=== PATIENT | female | born 1995 | race Caucasian/White ===

== ENCOUNTER → 2019-11-09 16:29 | Outpatient (BNVA) | payer BC, SELFPAY | PROVIDERS: Family Provider Nurse Practitioner Family; PCP Nurse Practitioner Family; Visit Provider Nurse Practitioner Family | DX: Z11.59 Encounter for screening for other viral diseases (principal); J06.9 Acute upper respiratory infection, unspecified; R19.7 Diarrhea, unspecified; J02.9 Acute pharyngitis, unspecified | CPT/HCPCS: 80053; 85025; 87070; 87635 ==

== ENCOUNTER → 2019-11-16 11:49 | Outpatient (BNVA) | payer BC, SELFPAY | PROVIDERS: Family Provider Nurse Practitioner Family; PCP Nurse Practitioner Family; Visit Provider Nurse Practitioner Family | DX: R05 Cough (principal); R30.0 Dysuria | CPT/HCPCS: 71046; 81000; 85025 ==

== ENCOUNTER 2020-04-07 21:43 | Emergency (ER) | payer BC, MEDICAID, SELFPAY ==
[2020-04-07 21:54] VITALS: BP 121/74; PULSE 89; RESP 14; TEMP 36.7; O2SAT 97; BMI 27.4
[2020-04-07 22:03] VITALS: BP 101/66; PULSE 88; RESP 16; O2SAT 99
--- NOTE | 2020-04-07 22:09 | USR_ITS ---
PROCEDURE INFORMATION: Exam: US , Limited Exam date and time: 04/07/2020 11:35 PM Age: 24 years old Clinical indication: Lmp or gestational age (in weeks): 16 wks 1 day 16 wks 5 day by u/s; Other: Cramping; ; Prior surgery; Surgery type: C-sec; Patient HX: Current UTI; Additional info: Abdominal pain, cramping TECHNIQUE: Imaging protocol: Real-time ultrasound of the maternal uterus with image documentation. Exam focused on the clinical indication. COMPARISON: No relevant prior studies available. FINDINGS: Single living fetus. Posterior placenta. No visible placental abnormality on the provided images. Amniotic fluid volume within normal limits. Cervical length was estimated with transabdominal scanning, measuring approximately 3.5 cm. No definite cervical canal dilation or fluid on the provided images. Complete measurements were not obtained at this time. BPD: , 3.5 cm. , 16 weeks, 5 days HC: , 13.0 cm. , 16 weeks, 5 days heart activity documented by the technologist, 144 bpm. Evaluation of anatomy still limited by early gestation. Complete/detailed evaluation of anatomy was not performed/possible at this time. Followup/complete evaluation of anatomy recommended, as clinically appropriate. No visible maternal adnexal abnormality. The urinary bladder was not completely evaluated/imaged at this time. US/ OB limited [id number] IMPRESSION: 1. Single living fetus, estimated age: 16 weeks, 5 days. 2. Posterior placenta. No visible placental abnormality on the provided images. 3. Normal amniotic fluid volume. 4. Other details discussed above.
--- NOTE | 2020-04-07 22:27 | W.ED.PREGNAN ---
HPI - General: Chief complaint: Abdominal Pain Stated complaint: BACK PAIN, VOMITING Time Seen by Provider: 04/07/20 22:03 Source: patient and family (mother) Mode of arrival: ambulatory Limitations: no limitations History of Present Illness: HPI Narrative: 24-year-old female patient presents to the emergency department with 24-hour onset of lower abdominal pain. She reports pain radiating to her lower back. She denies fever chills. Reports vomiting that started last night with onset of pain. History of cystitis; denies dysuria or urinary frequency/pain with urination. She reports has not taken anything for pain, reports approximately 16 weeks , unknown last menstrual period. Reports her due date 09/21/2020. 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 She reports taking amoxicillin due to an infection, reports has to take the amoxicillin again prior to delivery. She denies vaginal bleeding. Reports bleeding did occur in first trimester but resolved at 11th week. MD Complaint: abdominal pain Onset (ago): hour(s) (24) Pain Consistency: intermittent Location: pelvis Severity: moderate Quality: Cramping and Dull Radiation: pelvis Relieving factors: none Exacerbating factors: none Vaginal discharge: none Vaginal bleeding: none Patient : Yes Expected Date of Delivery: 09/21/20 OB History - Current : no complications OB History - Previous Pregnancies: no complications Associated symptoms: Reports abdominal pain, nausea and vomiting; Deny dysuria or headache(s) Related Data: : 2 Review of Systems General: Reports: 10 or more systems reviewed and unremarkable except in HPI and below Const: Denies: fever(s), chills or diaphoresis Eyes: Denies: change in vision, blurry vision, eye discomfort or eye redness ENMT: Denies: throat pain, dental pain or disequilibrium Card: Denies: chest pain, palpitations, irregular heart rhythm or swelling of feet/ankles Resp: Denies: dyspnea, productive cough, non-productive cough, wheezing or chest congestion GI: Reports: abdominal pain, nausea and vomiting : Reports: pelvic pain; Denies: flank pain, difficulty voiding, dysuria, urinary frequency, urinary urgency, dribbling, urinary incontinence, hematuria, genital lesions, vaginal dryness, vaginal odor or vaginal bleeding Musc: Reports: back pain; Denies: neck pain, joint pain, joint stiffness, muscle cramps or muscle weakness Skin/Breast: Denies: rash or pruritus Neuro: Denies: headache(s), weakness in extremities or behavioral changes Psych: Denies: anxiety, depression or change in appetite Berry/Lymph: Denies: easy bruising PFSH ED PFSH: Medical History (Updated 04/08/20 @ 00:19 by JESUS Vidales) delivery delivered Depression with anxiety Insomnia Social History Smoking and tobacco status: never smoked Second hand smoke exposure: No Smoking risk assessment/counseling performed?: No Alcohol intake: never Desire information about alcohol rehabilitation?: No Counseling given: No Female Reproductive History: : 2 Physical Exam Const: COMMON NORMALS: no acute distress, average body habitus, patient oriented x3, healthy appearing, alert and well nourished EXAM LIMITATIONS: no altered mental status and no physical limitations GENERAL APPEARANCE: cooperative, well kempt, well developed and well hydrated; not comfortable, not anxious and not ill appearing NUTRITIONAL APPEARANCE: overweight ORIENTATION/CONSCIOUSNESS: Yes awake, Yes oriented to person, Yes oriented to place and Yes oriented to time HENMT: COMMON NORMALS: normocephalic, atraumatic, Normal external nose present and moist oral mucous membranes HEAD & SCALP: normal to inspection, normocephalic and atraumatic FACE & SINUS: normal facial exam, sinuses nontender and face symmetric NOSE: Normal external nose present MOUTH: Normal oral and palatal mucosa present, lip normal and tongue normal THROAT: posterior oropharynx normal Eye: COMMON NORMALS: Equal, round and reactive pupils present and EOMs intact bilaterally GENERAL EYE: appearance normal, both eyes and all related structures PUPIL: Yes Equal, round and reactive pupils present Neck/C-Spine: COMMON NORMALS: full ROM, no lymphadenopathy and supple GENERAL: Yes normal visual inspection and Yes trachea midline CERVICAL SPINE: Yes cervical ROM normal Lymph: LYMPHATIC: no lymphadenopathy noted Chest: COMMONS NORMALS: normal inspection of the chest and normal palpation of entire chest wall Resp: COMMON NORMALS: normal respiratory effort, No retractions, No use of accessory muscles and clear to auscultation bilaterally EFFORT & INSPECTION: Yes able to speak in complete sentences and No uses accessory muscles AUSCULTATION: clear to auscultation bilaterally, no wheezes and lung sounds not diminished Cardio: COMMON NORMALS: regular rate, regular rhythm, S1 normal heart sound present, S2 normal heart sound present and Peripheral pulses 2+ throughout RATE: regular rate RHYTHM: regular rhythm HEART SOUNDS: S1 normal heart sound present and S2 normal heart sound present PERIPHERAL PULSES: Peripheral pulses 2+ throughout GI: COMMON NORMALS: Normal to inspection, nondistended, normoactive bowel sounds present and Soft to palpation INSPECTION: Yes normal to inspection, No Abdominal wall edema, No abdominal distension, No central obesity and Yes gravid abdomen AUSCULTATION: Yes normoactive bowel sounds PALPATION: Yes Soft to palpation, Yes Tenderness to palpation present (GI) (lower pelvis) and Yes Other GI palpation findings present (FHT 155 regular and strong) : COMMON NORMALS: Yes no CVA tenderness BLADDER/KIDNEY EXAM: Yes no CVA tenderness Back/Pelvis: COMMON NORMALS: no CVA tenderness and thoracic and lumbar spine normal to inspection Extremity: COMMON NORMALS: normal to inspection, full ROM and capillary refill normal GENERAL: Yes normal exam except as noted Neuro: COMMON NORMALS: patient oriented x3 and no focal motor deficits SENSORIUM/ORIENTATION: Yes alert, Yes oriented to person, Yes oriented to place and Yes oriented to time SPEECH: speech normal GAIT: Yes Normal gait present MOTOR EXAM: 5/5 motor strength present throughout Psych: COMMON NORMALS: mental status grossly normal, Normal thought process present, cooperative, normal affect, speech normal and activity/motor behavior normal APPEARANCE: Yes well kempt ACTIVITY/MOTOR BEHAVIOR: Yes appropriate eye contact SPEECH: Yes normal speech THOUGHT PROCESS: Normal thought process present MEMORY/COGNITION: Yes memory grossly intact INSIGHT: Good insight present (Psych) JUDGEMENT: Good judgement present (Psych) Skin: COMMON NORMALS: no rashes or lesions noted and turgor normal GENERAL SKIN EXAM: no rashes or lesions noted and turgor normal Course Vital Signs: Vital signs: Vital Signs Temperature 98.1 F 04/07/20 21:54 Pulse Rate 73 04/08/20 00:43 Respiratory Rate 18 04/08/20 00:43 Blood Pressure 110/73 04/08/20 00:43 Pulse Oximetry 97 04/08/20 00:43 MDM - OB/Uterine Contractions MDM Narrative: Medical decision making narrative: 24-year-old female patient presents to the emergency department with 1 to 2-day history of lower pelvic pain that radiates to her back. She has history of urinary cystitis; urinalysis did reveal leukoesterase, bacteria and white blood cells. ultrasound with 16-week 5-day intrauterine without abnormalities, heart rate was strong 140s. Renal ultrasound with suspicious mild right hydronephrosis which could include urinary tract infection/early pyelonephritis or renal calculus. Placed on Omnicef twice daily with referral to Dr. Rendon, urology. Reglan and Tylenol administered here in the ED along with IV fluids, she reports pain resolved and felt much better. Was able to tolerate p.o. fluids here in the ED. Lab Data: Labs: Lab Results 04/07/20 04/07/20 04/07/20 Range/Units 22:15 22:15 22:15 WBC 10.2 H (4.0-10.0) 10^3/ uL RBC 3.67 L (4.1-5.3) 10^6/u L Hgb 11.6 (11.5-15.3) g/dL Hct 35.4 L (37.0-47.0) % MCV 96.5 (81-99) fL MCH 31.6 (28.0-34.0) pg MCHC 32.8 (30.0-36.0) g/dL RDW 13.0 (12.1-15.1) % Plt Count 271 (130-400) 10^3/c mm MPV 10.0 (7.4-10.4) fL Neut % (Auto) 72.4 % Lymph % (Auto) 17.9 % [place] % (Auto) 6.9 % Eos % (Auto) 1.5 % Baso % (Auto) 0.5 % Neut # (Auto) 7.41 (1.8-7.7) 10^3/u L Lymph # (Auto) 1.8 (0.8-4.8) 10^3/u L [place] # (Auto) 0.7 (0.2-0.9) 10^3/u L Eos # (Auto) 0.2 (0.0-0.8) 10^3/u L Baso # (Auto) 0.1 (0.0-0.1) 10^3/u L Nucleated RBC % (a uto) 0 % Nucleated RBCs # 0.0 /100WBC Sodium 135 L (136-145) mmol/L Potassium 3.7 (3.5-5.1) mmol/L Chloride 100 (98-107) mmol/L Carbon Dioxide 25 (22-29) mmol/L Anion Gap 13.7 (5-19) BUN 6 (6-20) mg/dL Creatinine 0.5 (0.5-0.9) mg/dL GFR Calculation 152.9 H (90-130) mL/min Glucose 87 (65-115) mg/dL Calculated Osmolal ity 277 L (285-295) mOsm/k g Calcium 8.9 (8.5-10.5) mg/dL Total Bilirubin 0.3 (0.15-1.2) mg/dL AST 10 (0-32) U/L ALT 6 (0-33) U/L Alkaline Phosphata se 62 (35-105) IU/L Total Protein 6.8 (6.6-8.7) g/dL Albumin 3.9 (3.5-5.2) g/dL Globulin 2.9 (1.3-4.6) g/dL Lipase 44 (13-60) U/L Ser , [place] 21836.00 mIU/mL Urine Color (Yellow) Urine Appearance (CLEAR) Urine pH (5-7) Ur Specific Gravit y (1.005-1.030) Urine Protein (Negative) Urine Glucose (UA) (Normal) Urine Ketones (Negative) Urine Blood (Negative) Urine Nitrate (Negative) Urine Bilirubin (Negative) Urine Urobilinogen (Negative) mg/dL Ur Leukocyte Yaima ase (Negative) Urine RBC (0-2) /hpf Urine WBC (0-5) /hpf Ur Squamous Epith Cells (0-5) /hpf Amorphous Sediment /hpf Urine Bacteria (NONE) /hpf Urine Mucus /hpf 04/07/20 Range/Units 22:15 WBC (4.0-10.0) 10^3/ uL RBC (4.1-5.3) 10^6/u L Hgb (11.5-15.3) g/dL Hct (37.0-47.0) % MCV (81-99) fL MCH (28.0-34.0) pg MCHC (30.0-36.0) g/dL RDW (12.1-15.1) % Plt Count (130-400) 10^3/c mm MPV (7.4-10.4) fL Neut % (Auto) % Lymph % (Auto) % [place] % (Auto) % Eos % (Auto) % Baso % (Auto) % Neut # (Auto) (1.8-7.7) 10^3/u L Lymph # (Auto) (0.8-4.8) 10^3/u L [place] # (Auto) (0.2-0.9) 10^3/u L Eos # (Auto) (0.0-0.8) 10^3/u L Baso # (Auto) (0.0-0.1) 10^3/u L Nucleated RBC % (a uto) % Nucleated RBCs # /100WBC Sodium (136-145) mmol/L Potassium (3.5-5.1) mmol/L Chloride (98-107) mmol/L Carbon Dioxide (22-29) mmol/L Anion Gap (5-19) BUN (6-20) mg/dL Creatinine (0.5-0.9) mg/dL GFR Calculation (90-130) mL/min Glucose (65-115) mg/dL Calculated Osmolal ity (285-295) mOsm/k g Calcium (8.5-10.5) mg/dL Total Bilirubin (0.15-1.2) mg/dL AST (0-32) U/L ALT (0-33) U/L Alkaline Phosphata se (35-105) IU/L Total Protein (6.6-8.7) g/dL Albumin (3.5-5.2) g/dL Globulin (1.3-4.6) g/dL Lipase (13-60) U/L Ser , Matt i-Qnt mIU/mL Urine Color Yellow (Yellow) Urine Appearance Sl cloudy A (CLEAR) Urine pH 7 (5-7) Ur Specific Gravit y 1.010 (1.005-1.030) Urine Protein Neg (Negative) Urine Glucose (UA) Norm (Normal) Urine Ketones Negative (Negative) Urine Blood Neg (Negative) Urine Nitrate Negative (Negative) Urine Bilirubin Neg (Negative) Urine Urobilinogen Norm (Negative) mg/dL Ur Leukocyte Yaima ase Trace H (Negative) Urine RBC 0-4 H (0-2) /hpf Urine WBC 5-10 H (0-5) /hpf Ur Squamous Epith Cells 15-25 H (0-5) /hpf Amorphous Sediment 3+ /hpf Urine Bacteria 1+ H (NONE) /hpf Urine Mucus 1+ /hpf Imaging Data^: US: Radiologist's impression: [address] [place] [address] Ultrasound Report Signed Patient: Sherry Tsang Unit #: [id number] : 1995 Age/Sex: 24 / F ADM Date: 04/07/20 Loc: ER Room/Bed: Attending Dr: Ordering Provider/Ordering MD: Laura Bowden Date of Service: 04/07/20 Procedure(s): US renal BI* [id number] Accession Number(s): [id number] Report Number: [id number] PROCEDURE INFORMATION: Exam: US Retroperitoneal; Complete; Kidneys and Bladder Exam date and time: 04/07/2020 11:14 PM Age: 24 years old Clinical indication: Other: Cramping; ; Additional info: Flank pain; 37 wks iup TECHNIQUE: Imaging protocol: Real-time ultrasound of the retroperitoneum with image documentation. Complete exam focused on the kidneys and bladder. COMPARISON: No relevant prior studies available. FINDINGS: The right kidney measures 12.0 cm in length. The left kidney measures 12.8 cm in length. Suspect slight prominence of the right renal pelvis and collecting system, possibly indicating very mild right hydronephrosis. Significance is uncertain, and this appearance could simply be secondary to hydronephrosis of . An occult ureteral calculus or pyelonephritis might also be considered. Please correlate clinically. There is no left hydronephrosis No definite perinephric fluid. Neither ureter is obviously visible or dilated. The renal parenchymal thickness and echogenicity are within normal limits. There is no sonographically visible renal calculus, mass, or cyst. The urinary bladder is not well visualized/evaluated at this time. Bladder wall thickness of about 4 mm may be mildly prominent, however the bladder is not well distended. While nonspecific, this could indicate evidence for cystitis. Please correlate clinically. US/US renal BI* [id number] IMPRESSION: 1. Suspect very mild right hydronephrosis, see above discussion. 2. Possible mild urinary bladder wall thickening, see above. 3. Other details discussed above. Dictated By: Zachery Yoder MD Signed By: Zachery Yoder MD Signed Date/Time: 04/07/202354 DD/ 52 Other Imaging: Radiologist's impression: [address] [address] Ultrasound Report Signed Patient: Sherry Tsang Unit #: [id number] : 1995 Age/Sex: 24 / F ADM Date: 04/07/20 Loc: ER Room/Bed: Attending Dr: Ordering Provider/Ordering MD: Laura Bowden Date of Service: 04/07/20 Procedure(s): US OB limited [id number] Accession Number(s): [id number] Report Number: [id number] PROCEDURE INFORMATION: Exam: US , Limited Exam date and time: 04/07/2020 11:35 PM Age: 24 years old Clinical indication: Lmp or gestational age (in weeks): 16 wks 1 day 16 wks 5 day by u/s; Other: Cramping; ; Prior surgery; Surgery type: C-sec; Patient HX: Current UTI; Additional info: Abdominal pain, cramping TECHNIQUE: Imaging protocol: Real-time ultrasound of the maternal uterus with image documentation. Exam focused on the clinical indication. COMPARISON: No relevant prior studies available. FINDINGS: Single living fetus. Posterior placenta. No visible placental abnormality on the provided images. Amniotic fluid volume within normal limits. Cervical length was estimated with transabdominal scanning, measuring approximately 3.5 cm. No definite cervical canal dilation or fluid on the provided images. Complete measurements were not obtained at this time. BPD: , 3.5 cm. , 16 weeks, 5 days HC: , 13.0 cm. , 16 weeks, 5 days heart activity documented by the technologist, 144 bpm. Evaluation of anatomy still limited by early gestation. Complete/detailed evaluation of anatomy was not performed/possible at this time. Followup/complete evaluation of anatomy recommended, as clinically appropriate. No visible maternal adnexal abnormality. The urinary bladder was not completely evaluated/imaged at this time. / OB limited [id number] IMPRESSION: 1. Single living fetus, estimated age: 16 weeks, 5 days. 2. Posterior placenta. No visible placental abnormality on the provided images. 3. Normal amniotic fluid volume. 4. Other details discussed above. Dictated By: Zachery Yoder MD Signed By: Zachery Yoder MD Signed Date/Time: 04/08/20 0002 DD/ 0000 Discharge Plan Discharge Patient Disposition: Home Clinical Impression: Calculus of kidney, Abdominal pain during in second trimester UTI (urinary tract infection) Qualifiers: Urinary tract infection type: acute cystitis Hematuria presence: without hematuria Qualified Code(s): N30.00 - Acute cystitis without hematuria Condition: Stable Prescriptions: New cefdinir 300 mg capsule 300 mg PO BID 10 Days Qty: 20 RF: 0 Reglan 10 mg tablet 10 mg PO Q6H PRN (Reason: nausea and vomiting) Qty: 10 RF: 0 Discontinued prednisone 10 mg tablets,dose pack See Rx Instructions PO PER PKG DIR Qty: 21 RF: 0 levofloxacin [Levaquin] 500 mg tablet 500 mg PO DAILY 7 Days Qty: 7 RF: 0 No Action acyclovir 400 mg tablet PO RF: 0 naproxen 250 mg tablet PO RF: 0 albuterol sulfate [ProAir HFA] 90 mcg/actuation HFA aerosol inhaler 2 puff INHALATION Q6H PRN (Reason: shortness of breath or wheezing) 30 Days Qty: 6.7 RF: 0 promethazine-DM 6.25-15 mg/5 mL syrup 5 ml PO Q6H PRN (Reason: cough) 7 Days Qty: 473 RF: 0 Mucinex 1,200 mg tablet extended release 12hr 1,200 mg PO BID 7 Days Qty: 14 RF: 0 Discharge Orders: Discharge ED (Routine); Ordered 04/08/20 Ordered By: Laura Bowden Referrals: Apryl Mike FNP [Primary Care Provider] - Discharge Diet: Usual diet Discharge Activity: Limit activity as instructed Patient Instructions: Urinary Tract Infection in Women (ED), Renal Colic (ED), Abdominal Pain (ED), Abdominal Pain in (ED) Activity Restrictions/Additional Instructions: Take Tylenol, extra strength; take 2 tablets 3 times daily as needed for pain Prescription of Reglan has been provided for nausea Drink lots and lots of fluids Take Omnicef until all gone, even if feeling better youth services librarian will contact you with an appointment with Dr. Rendon, urology Continue follow-up with Dr. Aragon Coding Level of Care Code ED [employer] for Chg Fwd Exam Comprehensive
[2020-04-07 22:33] LABS: Basophils # 0.1 10^3/uL (0.0-0.1); Basophils % 0.5 %; Eosinophils # 0.2 10^3/uL (0.0-0.8); Eosinophils % 1.5 %; Hematocrit 35.4 % (37.0-47.0); Hemoglobin 11.6 g/dL (11.5-15.3); Lymphocytes # 1.8 10^3/uL (0.8-4.8); Lymphocytes % 17.9 %; Mean Corpuscular HGB Conc 32.8 g/dL (30.0-36.0); Mean Corpuscular Hemoglobin 31.6 pg (28.0-34.0); Mean Corpuscular Volume 96.5 fL (81-99); Monocytes # 0.7 10^3/uL (0.2-0.9); Monocytes % 6.9 %; Neutrophils # 7.41 10^3/uL (1.8-7.7); Neutrophils % 72.4 %; Nucleated Red Blood Cells % 0 %; Platelet Count 271 10^3/cmm (130-400); Red Blood Count 3.67 10^6/uL (4.1-5.3); White Blood Count 10.2 10^3/uL (4.0-10.0)
[2020-04-07] MEDS: metoclopramide 5 mg/mL SDV 2 mL 10 MG IVP (22:41)
[2020-04-07] MEDS: sodium chloride 0.9% 1,000 ML 999 ML IV (22:41)
[2020-04-07 22:43] LABS: Add Urine Microscopic? YES; Alanine Aminotransferase 6 U/L (0-33); Albumin Level 3.9 g/dL (3.5-5.2); Alkaline Phosphatase 62 IU/L (35-105); Anion Gap 13.7 (5-19); Aspartate Amino Transferase 10 U/L (0-32); Bilirubin Urine Neg (Negative); Blood Urea Nitrogen 6 mg/dL (6-20); Blood Urine Neg (Negative); Calcium 8.9 mg/dL (8.5-10.5); Carbon Dioxide 25 mmol/L (22-29); Chloride 100 mmol/L (98-107); Globulin 2.9 g/dL (1.3-4.6); Glomerular Filtration Rate 152.9 mL/min (90-130); Glucose 87 mg/dL (65-115); Glucose Urine UA Norm (Normal); Ketones Urine Negative (Negative); Leukocyte Esterase Urine Trace (Negative); Lipase 44 U/L (13-60); Nitrate Urine Negative (Negative); Osmolality Calculated 277 mOsm/kg (285-295); Potassium 3.7 mmol/L (3.5-5.1); Protein Urine Neg (Negative); Sodium 135 mmol/L (136-145); Total Bilirubin 0.3 mg/dL (0.15-1.2); Total Protein 6.8 g/dL (6.6-8.7); Urine Color Yellow (Yellow); Urobilinogen Urine Norm (Negative); pH Urine 7 (5-7)
[2020-04-07 22:46] LABS: Amorphous Sediment Urine 3+ /hpf; Bacteria Urine 1+ /hpf; Mucus Urine 1+ /hpf; RBC Urine 0-4 /hpf (0-2); Squamous Epithelial Cell Urine 15-25 /hpf (0-5)
[2020-04-07 22:47] LABS: Add Urine Culture? No
--- NOTE | 2020-04-07 23:13 | USR_ITS ---
PROCEDURE INFORMATION: Exam: US Retroperitoneal; Complete; Kidneys and Bladder Exam date and time: 04/07/2020 11:14 PM Age: 24 years old Clinical indication: Other: Cramping; ; Additional info: Flank pain; 37 wks iup TECHNIQUE: Imaging protocol: Real-time ultrasound of the retroperitoneum with image documentation. Complete exam focused on the kidneys and bladder. COMPARISON: No relevant prior studies available. FINDINGS: The right kidney measures 12.0 cm in length. The left kidney measures 12.8 cm in length. Suspect slight prominence of the right renal pelvis and collecting system, possibly indicating very mild right hydronephrosis. Significance is uncertain, and this appearance could simply be secondary to hydronephrosis of . An occult ureteral calculus or pyelonephritis might also be considered. Please correlate clinically. There is no left hydronephrosis No definite perinephric fluid. Neither ureter is obviously visible or dilated. The renal parenchymal thickness and echogenicity are within normal limits. There is no sonographically visible renal calculus, mass, or cyst. The urinary bladder is not well visualized/evaluated at this time. Bladder wall thickness of about 4 mm may be mildly prominent, however the bladder is not well distended. While nonspecific, this could indicate evidence for cystitis. Please correlate clinically. US/US renal BI* [id number] IMPRESSION: 1. Suspect very mild right hydronephrosis, see above discussion. 2. Possible mild urinary bladder wall thickening, see above. 3. Other details discussed above.
[2020-04-07] MEDS: cefTRIAXone 1,000 MG in sodium chloride 0.9% (plus) 50 ML 100 MG IV (23:23)
[2020-04-07 23:39] VITALS: BP 109/71; PULSE 77; RESP 16; O2SAT 99
[2020-04-08 00:43] VITALS: BP 110/73; PULSE 73; RESP 18; O2SAT 97
--- NOTE | 2020-04-09 11:18 | DCPLANNER ---
manager search had message to schedule a follow up appointment for patient with ortho. manager search called the ortho clinic, spoke with Shobha, gave clinic patients information. manager search was told that patients information would be printed and reviewed. Clinic will call patient with appointment information.
--- NOTE | 2020-04-10 07:48 | DCPLANNER ---
Patient has a follow up appointment scheduled for Friday, April 10, 2020 at 10:[address] Rendon. Clinic will call patient with appointment information.
--- NOTE | 2020-05-11 14:45 | DCPLANNER ---
Patient had a follow up appointment scheduled for 04.10.[address] Rendon - patient did attend appointment.
== END 2020-04-08 00:45 | disposition home or self-care (01) ==
PROVIDERS: Emergency Provider Nurse Practitioner Family; PCP Nurse Practitioner Family
DX: O23.12 Infections of bladder in pregnancy, second trimester (principal); O26.892 Other specified pregnancy related conditions, second trimester; N20.0 Calculus of kidney; Z3A.16 16 weeks gestation of pregnancy
CPT/HCPCS: 12345; 76705; 76770; 76815; 80053; 81001; 83690; 84702; 85025; 96365; 96375; 99283; 99284; J0131; J0696; J2765; J7040

== ENCOUNTER → 2020-04-10 09:37 | Outpatient (BNVA) | payer BC, SELFPAY | PROVIDERS: PCP Family Medicine; Visit Provider Urology | DX: N30.00 Acute cystitis without hematuria (principal); N13.30 Unspecified hydronephrosis | CPT/HCPCS: 81003 ==

== ENCOUNTER → 2020-05-01 16:53 | Outpatient (BNVA) | payer BC, SELFPAY | PROVIDERS: PCP Family Medicine; Visit Provider Urology | DX: N39.0 Urinary tract infection, site not specified (principal); N13.30 Unspecified hydronephrosis | CPT/HCPCS: 81003; 87086 ==

== ENCOUNTER → 2020-05-15 10:32 | Outpatient (BNVA) | payer BC, MEDICAID, SELFPAY | PROVIDERS: PCP Family Medicine; Visit Provider Urology | DX: N39.0 Urinary tract infection, site not specified (principal) | CPT/HCPCS: 81003 ==

== ENCOUNTER → 2020-06-13 08:26 | Outpatient (BNVA) | payer BC, MEDICAID, SELFPAY | PROVIDERS: PCP Family Medicine; Visit Provider Urology | DX: N39.0 Urinary tract infection, site not specified (principal) | CPT/HCPCS: 81003 ==

== ENCOUNTER 2020-09-17 04:58 | Inpatient (IN) | payer BC, MEDICAID, SELFPAY ==
--- NOTE | 2020-09-06 11:31 | ANES.PREANE2 ---
Pre-Anesthetic Assessment Pre-Anesthetic Assessment: Height/Weight: Height 1.57 m Preop Diagnosis: IUP Proposed Procedure: Operation Date: 09/17/20 07:00 Proposed Procedures p Section Repeat With Tubal(Not Applicable) - Markus Aragon MD Familial anesthetic complications: None Social: Social History: No alcohol and No tobacco Exam: Pre-Anes Outpt Exam: alert, oriented x 3, clear to auscultation bilaterally and regular rate & rhythm Airway: Cervical ROM: WNL MP: 2 Dentition: Full GI: GI: GERD Anesthetic Plan: Anesthesia: Regional (specify below) (spinal) Risk of > 500 ml blood loss (7ml/kg in children): Yes, adequate IV access and fluids planned PFSH Anesthesia PFSH: Medical History delivery delivered Depression with anxiety Hydronephrosis, right Insomnia Recurrent UTI Family History Father Diabetes Social History Smoking and tobacco status: never smoked Second hand smoke exposure: No Smoking risk assessment/counseling performed?: No Alcohol intake: never Desire information about alcohol rehabilitation?: No Counseling given: No Marital status: Current occupational status: unemployed History of recent travel: No Data Anesthesia Cardiac Studies: No Data to Display
[2020-09-17] VITALS (26 sets, daily range): BP systolic 104–125; BP diastolic 46–78; PULSE 60–102; RESP 16–17; TEMP 36.6–36.8; O2SAT 96–100; BMI 32.1
[2020-09-17] MEDS: lactated ringers 1,000 ML 999 ML IV (05:43)
[2020-09-17 05:50] LABS: Basophils % 0.4 %; Eosinophils # 0.1 10^3/uL (0.0-0.8); Eosinophils % 1.3 %; Hematocrit 33.3 % (37.0-47.0); Hemoglobin 10.3 g/dL (11.5-15.3); Lymphocytes # 1.7 10^3/uL (0.8-4.8); Lymphocytes % 17.7 %; Mean Corpuscular HGB Conc 30.9 g/dL (30.0-36.0); Mean Corpuscular Hemoglobin 26.5 pg (28.0-34.0); Mean Corpuscular Volume 85.6 fL (81-99); Mean Platelet Volume 10.4 fL (7.4-10.4); Monocytes # 0.7 10^3/uL (0.2-0.9); Monocytes % 7.3 %; Neutrophils # 6.91 10^3/uL (1.8-7.7); Neutrophils % 71.1 %; Nucleated Red Blood Cells % 0.2 %; Platelet Count 215 10^3/cmm (130-400); Red Blood Count 3.89 10^6/uL (4.1-5.3); Red Cell Distribution Width 19.4 % (12.1-15.1); White Blood Count 9.7 10^3/uL (4.0-10.0)
[2020-09-17] MEDS: lactated ringers 1,000 ML 125 ML IV (06:38)
[2020-09-17] MEDS: famotidine 20 mg/2 mL INJ IVP (06:54)
[2020-09-17] MEDS: citric acid-sodium citrate 30 mL UDC PO (06:54)
[2020-09-17] MEDS: metoclopramide 5 mg/mL SDV 2 mL 10 MG IVP (06:54)
--- NOTE | 2020-09-17 06:57 | P.HP_ITS ---
Providers/Chief Complaint Admitting Physician: Markus Aragon MD Primary Care Provider: Markus Aragon MD Chief Complaint: Repeat with Tubal 09/17/20 HPI DIE TRIPPER History of Present Illness Sherry Tsang is a 25 year old 2 para 1-0-0-1 female at 39 weeks estimated gestational age presenting for repeat section and bilateral t ubal ligation. Her has otherwise been relatively unremarkable. Her labs were notable for being ASCUS, and HPV positive. She was also GBS positive. Her blood type is O positive. She is presented today for repeat section. Present Details : 2 Para: 1 Labs Rubella: Immune RPR: Negative GBS: Positive Review of Systems General: Reports: 10 or more systems reviewed and unremarkable except in HPI and below Const: Reports: fatigue; Denies: fever(s) Eyes: Denies: change in vision Card: Denies: chest pain Musc: Reports: back pain Berry/Lymph: Denies: easy bruising Medications/Allergies Home Medications Medication Instructions Recorded Confirmed Last Taken Type metoclopramide HCl [Reglan] 10 mg PO Q6H PRN #10 tab 04/08/20 09/17/20 09/16/20 21:00 Rx acyclovir 400 mg tablet 400 mg PO DAILY PRN tab 05/01/20 09/17/20 09/16/20 21:00 History vitamins no.121-iron 28 1 tab PO DAILY tab 05/15/20 09/17/20 09/16/20 21:00 History mg-folic acid 800 mcg tablet Allergies Allergy/AdvReac Type Severity Reaction Status Date / Time Opioids - Morphine Analogues Allergy Mild hives Verified 05/15/20 10:37 acetaminophen [From Percocet] Allergy nausea Verified 05/15/20 10:37 oxycodone [From Percocet] Allergy nausea Verified 05/15/20 10:37 PFSH DIE TRIPPER PFSH: Medical History delivery delivered Depression with anxiety Hydronephrosis, right Insomnia Recurrent UTI Family History Father Diabetes Social History Smoking and tobacco status: never smoked Second hand smoke exposure: No Smoking risk assessment/counseling performed?: No Alcohol intake: never Desire information about alcohol rehabilitation?: No Counseling given: No Marital status: Current occupational status: unemployed History of recent travel: No Vitals/I&O/Wt Last Vital Signs Temp 97.9 F 09/17/20 05:19 Pulse 102 H 09/17/20 05:20 Resp 17 09/17/20 05:11 BP 106/69 09/17/20 05:19 Pulse Ox 98 09/17/20 05:20 Weight last 48 hrs Weight 176 lb Physical Exam Const: COMMON NORMALS: patient oriented x3 and alert HENMT: COMMON NORMALS: moist oral mucous membranes HEAD & SCALP: normal to inspection Chest: COMMONS NORMALS: normal inspection of the chest Resp: COMMON NORMALS: clear to auscultation bilaterally AUSCULTATION: clear to auscultation bilaterally Cardio: COMMON NORMALS: regular rate and regular rhythm RATE: regular rate RHYTHM: regular rhythm GI: INSPECTION: Yes normal to inspection and Yes other (Gravid) Extremity: COMMON NORMALS: normal to inspection GENERAL: Yes edema (Trace) Neuro: COMMON NORMALS: patient oriented x3, moves all extremities and no sensory deficits noted SENSORIUM/ORIENTATION: Yes alert Psych: COMMON NORMALS: mental status grossly normal Skin: COMMON NORMALS: no rashes or lesions noted GENERAL SKIN EXAM: no rashes or lesions noted Data : 09/17/20 05:30 A&P Assessment and plan (1) History of : We will proceed with a repeat section and bilateral tubal ligation this morning. We once again discussed the risks of the procedure including the risks of bleeding, infection, and damage intra-abdominal organs. She understands that there is a 1 and 200 chance that she can become again. She also understands is an increased risk of a ectopic . She and her have no further questions and wished to proceed. Status: Acute (2) Sterilization: Status: Acute (3) 39 weeks gestation of : Status: Acute Attestations Medical Necessity Statement*: Routine and post care. 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
--- NOTE | 2020-09-17 08:25 | PM.OP ---
Operative Report Date of procedure: September 17, 2020 Pre-op Diagnosis: Repeat section and desires sterilization Post-op diagnosis: same Procedure Done: 1. Repeat lower transverse section 2. Bilateral tubal ligation using a modified [place] technique Specimens removed/disposition: 1. Female with a weight of 8 pounds 8 ounces and Apgars of 9 and 9 2. Placenta with a three-vessel cord delivered intact 3. Bilateral fallopian tube segments with the right segment being tagged Pathology: other (Bilateral fallopian tube segments with the right segment being tagged) Surgeon: Markus Aragon Anesthesia: Epidural (Spinal) Estimated blood loss (mL): 800 Complications: None Condition: stable Disposition: floor (OB) Brief History: Refer to history and physical Procedure: The patient was brought back to the operating room where she was prepped and draped in usual sterile fashion. Anesthesia was found to be adequate. A lower transverse skin incision was then made with a #10 blade. I then dissected down to the underlying subcutaneous tissue until arriving at the prerectal fascia. The fascia was then nicked with the scalpel bilaterally. The fascial incisions were then carried laterally with Weaver scissors. Attention was then turned to the superior aspect of the incision which was grasped with kochers and tented up away from the underlying rectus abdominis muscles. The muscles were then dissected away from the fascia manually, and later with Weaver scissors. Attention was then turned to the inferior aspect of the incision, and the fascia was dissected away from the underlying muscle in similar fashion. The rectus abdominis muscles were then spread manually. The peritoneum was entered manually. Excellent visualization of the uterus was noted. A lower transverse uterine incision was then made with a #10 blade. Upon arriving at the intrauterine cavity, the uterine incision was then extended manually. The was noted to be in vertex position. After an initial attempt to deliver the baby's head was unsuccessful, a vacuum was used. There was 1 pop off. The baby's head was then delivered with the assistance of the vacuum.. After delivery of the head, the mouth and nose were suctioned at the site of the incision. There was no meconium. There was no nuchal cord. She was then completely delivered and placed on the abdomen. The cord was cut and clamped. The baby was then handed to the waiting nurse. The placenta was removed intact. The uterus was externalized. The intrauterine cavity was cleansed of any remaining debris. The uterine incision was reapproximated in 2 layers. The first layer was performed with 0 Vicryl in a running locked stitch. The second layer was an imbricating stitch also using 0 Vicryl. 3 [id number] stitches were then used to maintain excellent hemostasis. Attention was then turned to the fallopian tubes. I first ligated cut and cauterized the right fallopian tube in the modified [place] fashion using 0 chromic.. Attention was then turned to the left fallopian tube which was also ligated cut and cauterized in similar fashion. The uterus was replaced into the abdomen. I once again visualized the tubal excisions, and the stitches were in place with no bleeding. The peritoneum was then irrigated with warm saline. I reexamined the uterine incision and found it to be hemostatic. The rectus abdominis muscles were then reapproximated using 0 Vicryl in a running stitch. The fascia was then reapproximated using 0 Vicryl in running stitch. The subcutaneous tissue was then reapproximated in a running stitch with 0 chromic. The skin was reapproximated using antoni. A sterile dressing was placed. All counts were correct x2. Both the mother and baby were in stable condition. Associated Problem List Diagnoses (1) 39 weeks gestation of : (2) Sterilization: (3) History of :
[2020-09-17] MEDS: ketorolac 30 mg/mL INJ IVP ×3 (10:11→20:26)
[2020-09-17] MEDS: HYDROcodone-acetaminophen 5-325 mg Tablet PO ×3 (10:11→20:26)
--- NOTE | 2020-09-17 15:50 | ANE.PACU2 ---
Inpatient post-anesthesia follow up: Airway intact: Yes Vital signs: Temperature 97.9 F Pulse Rate 70 Respiratory Rate 16 Blood Pressure 121/68 Pulse Oximetry 99 Oxygen Delivery Me thod Room Air Oxygen Flow Rate Fraction of Inspir ed Oxygen Hydration adequate: Yes Nausea and vomiting: No Pain level: 2 Mental status: Baseline
[2020-09-17] MEDS: simethicone 80 mg Chew PO ×2 (17:53→21:33)
[2020-09-17] MEDS: docusate sodium 100 mg Capsule PO (17:53)
[2020-09-17] MEDS: ferrous sulfate EC 325 mg Tablet PO (17:53)
[2020-09-17 21:24] LABS: Hematocrit 30.8 % (37.0-47.0); Hemoglobin 9.4 g/dL (11.5-15.3); Mean Corpuscular HGB Conc 30.5 g/dL (30.0-36.0); Mean Corpuscular Volume 85.3 fL (81-99); Mean Platelet Volume 10.7 fL (7.4-10.4); Platelet Count 213 10^3/cmm (130-400); Red Blood Count 3.61 10^6/uL (4.1-5.3); Red Cell Distribution Width 19.5 % (12.1-15.1); White Blood Count 13.1 10^3/uL (4.0-10.0)
[2020-09-18] MEDS: HYDROcodone-acetaminophen 5-325 mg Tablet PO ×3 (03:53→15:38)
[2020-09-18] MEDS: simethicone 80 mg Chew PO ×2 (03:54→15:40)
[2020-09-18 04:14] VITALS: BP 101/66; PULSE 86; RESP 16; TEMP 36.7
--- NOTE | 2020-09-18 07:55 | PM.OBGYDC ---
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 The surgery was unremarkable. Her postoperative course was also unremarkable. Her bleeding was within normal limits. Her pain was well controlled. She passed flatus. She ambulated multiple times. She tolerated her advanced diet without difficulty. She was discharged home on the day after her surgery. Information Peripartum Data: Infant Delivery Method: Physical Exam Narrative: EXAM NARRATIVE: She is in no acute distress Lungs are clear auscultation bilaterally Her heart has a regular rate and rhythm Her fundus is below the umbilicus and firm Her dressing is clean, dry and intact Her extremities have trace edema Urinary Catheter Management^: Pascual: Cath Placed During This Visit: yes, but has since been removed by the nurse Reason for Continuing Indwelling Catheter: Decision to DC Catheter Urinary Catheter Date of Insertion: 09/17/20 Urinary Catheter Time of Insertion: 07:05 Date Urinary Catheter Removed: 09/17/20 Time Urinary Catheter Discontinued: 21:50 Discharge Data Data Completed and Pending: Labs from last 24 hours 09/17/20 21:00 WBC 13.1 H RBC 3.61 L Hgb 9.4 L Hct 30.8 L MCV 85.3 MCH 26.0 L MCHC 30.5 RDW 19.5 H Plt Count 213 MPV 10.7 H Vitals: Last Vital Signs Temp 98.0 F 09/18/20 04:14 Pulse 86 09/18/20 04:14 Resp 16 09/18/20 04:14 BP 101/66 09/18/20 04:14 Pulse Ox 99 09/17/20 11:10 Discharge Plan Discharge Patient Disposition: Home Condition: Stable Prescriptions: New hydrocodone-acetaminophen 5-325 mg Tablet 1 tab PO Q4H PRN (Reason: Moderate To Severe Pain) Qty: 28 RF: 0 DOK 100 mg Capsule 100 mg PO BID Qty: 20 RF: 0 ibuprofen 800 mg Tablet 800 mg PO TID Qty: 45 RF: 0 Continued acyclovir 400 mg tablet 400 mg PO DAILY PRN (Reason: HERPES) RF: 0 PNV no.383-reoh-lvedi acid 28 mg iron- 800 mcg tablet 1 tab PO DAILY RF: 0 Discontinued metoclopramide HCl [Reglan] 10 mg tablet 10 mg PO Q6H PRN (Reason: nausea and vomiting) Qty: 10 RF: 0 Discharge Orders: Discharge Order (Routine); Ordered 09/18/20 Ordered By: Markus Aragon Referrals: Markus Aragon MD [Primary Care Provider] - 09/25/20 9:15 am Discharge Diet: Usual diet Discharge Activity: Limit activity as instructed Patient Instructions: Depression (GEN), Pre-eclampsia and Eclampsia (DC), Bleeding (DC), OB - Jessica, OB Discharge Report, OB Anesthesia Instructions, OB Food/Drug Interaction Guide, Opioid Safety, OB Home Care, OB Proud Parent Packet Discharge Attestations 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
[2020-09-18] MEDS: prenatal vitamin Capsule 1 CAP PO (07:56)
[2020-09-18] MEDS: ibuprofen 800 mg tablet PO ×2 (10:01→15:38)
[2020-09-18] MEDS: docusate sodium 100 mg Capsule PO ×2 (10:33→17:39)
[2020-09-18 10:34] VITALS: BP 111/69; PULSE 75; RESP 16; TEMP 36.5; O2SAT 98
[2020-09-18 15:43] VITALS: BP 114/73; PULSE 92; RESP 16; TEMP 36.8; O2SAT 97
[2020-09-18] MEDS: ferrous sulfate EC 325 mg Tablet PO (17:39)
[2020-09-18] MEDS: cetirizine 10 mg Tablet PO (17:39)
[2020-09-18 22:09] VITALS: BP 125/84; PULSE 92; RESP 16; TEMP 36.8; O2SAT 97
== END 2020-09-18 20:54 | disposition home or self-care (01) | DRG 785 ==
PROVIDERS: Admitting Provider Family Medicine; PCP Family Medicine; Visit Provider Family Medicine
PROC: 10D00Z1 Extraction of Products of Conception, Low, Open Approach (ICD-10-PCS; CPT 59514; principal; 2020-09-17 07:00)
DX: O34.211 Maternal care for low transverse scar from previous cesarean delivery (principal); O99.824 Streptococcus B carrier state complicating childbirth; Z30.2 Encounter for sterilization; Z3A.39 39 weeks gestation of pregnancy; Z37.0 Single live birth
CPT/HCPCS: 12345; 36415; 51702; 59025; 59409; 85025; 85027; 86900; 88302; 96372; 96374; J0690; J1885; J2405; J2765; J3010; J3490

== ENCOUNTER 2022-09-27 08:46 | Emergency (ER) | payer BC, MEDICAID, SELFPAY ==
[2022-09-27 09:06] VITALS: BP 105/71; PULSE 94; RESP 18; TEMP 36.3; O2SAT 98; BMI 27.4
--- NOTE | 2022-09-27 11:04 | ED_ITS ---
HPI - Eye Problem General: Chief complaint: Eye Problems Stated complaint: eye problems 2xweeks, sore throat, fever Time Seen by Provider: 09/27/22 08:49 Source: patient Mode of arrival: ambulatory History of Present Illness: 27-year-old female complaining of redness in her left eye for the last 2 weeks. No crusting she will little bit of a sore throat she also reports a subjective fever. No nausea vomiting or diarrhea. Was seen recently starting polymyxin B sulfate the oxazole drops. Still has some redness in the left eye. No swelling of the eyelid chief complaint: eye redness Onset (ago): week(s) (2) Location: left eye Eye Symptoms: redness and discharge (Morning only) Place: home Associated symptoms: Reports fever(s) (Subjective); Denies cough, headache(s), nausea, neck pain, numbness, rhinorrhea, short of breath, vomiting or weakness Treatments Prior to Arrival: other (Prescription eyedrops) Review of Systems Const: Reports: fever(s) (Subjective); Denies: chills Eyes: Reports: eye redness ENMT: Denies: throat pain, ear or mastoid pain, nasal discharge or nasal congestion Card: Denies: chest pain, edema, dyspnea on exertion or orthopnea Resp: Denies: dyspnea, productive cough or non-productive cough GI: Denies: nausea or vomiting : Denies: flank pain, difficulty voiding, dysuria, urinary frequency or urinary urgency Musc: Denies: neck pain Skin/Breast: Denies: rash or pruritus Neuro: Denies: headache(s) PFSH ED PFSH: Medical History delivery delivered Depression with anxiety Hydronephrosis, right Insomnia Recurrent UTI Family History Father Diabetes Social History Smoking and tobacco status: never smoked Second hand smoke exposure: No Smoking risk assessment/counseling performed?: No Alcohol intake: never Desire information about alcohol rehabilitation?: No Counseling given: No Marital status: Current occupational status: unemployed Physical Exam Const: GENERAL APPEARANCE: cooperative and comfortable ORIENTATION/CONSCIOUSNESS: Yes awake, Yes oriented to person, Yes oriented to place and Yes oriented to time HENMT: COMMON NORMALS: normocephalic, atraumatic, hearing grossly normal bilaterally, external ears normal, EAC's normal, TM's normal bilaterally and Normal nasal mucous membranes and turbinates present HEAD & SCALP: normocephalic and atraumatic NOSE: Normal nasal mucous membranes and turbinates present EXTERNAL EAR: Yes external ears normal EXTERNAL AUDITORY CANAL: EAC's normal TYMPANIC MEMBRANE: TM's normal bilaterally Eye: COMMON NORMALS: Equal, round and reactive pupils present, EOMs intact bilaterally, conjunctivae normal and no scleral icterus CONJUNCTIVA: Yes conjunctivae normal PUPIL: Yes Equal, round and reactive pupils present OTHER: Mild scleral injection left eye no purulent drainage no swelling of the eyelids Neck/C-Spine: COMMON NORMALS: full ROM, no lymphadenopathy, supple and no JVD Resp: COMMON NORMALS: normal respiratory effort, No retractions, No use of accessory muscles and clear to auscultation bilaterally AUSCULTATION: clear to auscultation bilaterally Cardio: COMMON NORMALS: no JVD, regular rate, regular rhythm and No murmurs present (Cardio) RATE: regular rate RHYTHM: regular rhythm Extremity: COMMON NORMALS: normal to inspection, capillary refill normal, no clubbing, cyanosis or edema, no calf tenderness and no pedal edema Neuro: SENSORIUM/ORIENTATION: Yes oriented to person, Yes oriented to place and Yes oriented to time Skin: COMMON NORMALS: no rashes or lesions noted GENERAL SKIN EXAM: no rash es or lesions noted Course Vital Signs: Vital signs: Vital Signs Temperature 97.3 F L 09/27/22 09:06 Pulse Rate 94 09/27/22 09:06 Respiratory Rate 18 09/27/22 09:06 Blood Pressure 105/71 09/27/22 09:06 Pulse Oximetry 98 09/27/22 09:06 MDM - Eye Problem Medical Decision Making Start Naphcon Folivane eyedrops 2 drops 4 times daily as needed follow-up as needed if not improving continue the previously prescribed antibiotic drops Medical Records I reviewed the patient's medical records. Lab Data I reviewed the patient's lab results. Discharge Plan Discharge Patient Disposition: Home Clinical Impression: Chronic viral conjunctivitis Condition: Stable Prescriptions: New naphazoline-hypromellose 0.03-0.5 % drops 2 drp ophthalmic (eye) QID PRN (Reason: eye irritation) Qty: 15 0RF No Action acyclovir 400 mg tablet 400 mg PO DAILY PRN (Reason: HERPES) sertraline 50 mg tablet 50 mg PO DAILY prednisone 20 mg tablet 20 mg PO DAILY 5 Days Qty: 5 0RF cephalexin 500 mg capsule 500 mg PO BID 7 Days Qty: 14 0RF Discharge Orders: Discharge ED (Routine); Ordered 09/27/22 Ordered By: David Diana Referrals: Markus Aragon MD [Primary Care Provider] - Discharge Diet: Usual diet Discharge Activity: Increase activity as tolerated Patient Instructions: Opioid Safety, Pain Management Activity Restrictions/Additional Instructions: Follow-up with your doctor or the eye doctor if not improving Coding Level of Care Code ED [employer] 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
== END 2022-09-27 09:23 | disposition home or self-care (01) ==
PROVIDERS: Emergency Provider Family Medicine; PCP Family Medicine
DX: H10.022 Other mucopurulent conjunctivitis, left eye (principal)
CPT/HCPCS: 99283

== ENCOUNTER 2023-06-18 07:50 | Outpatient (CLI) | payer BC, MEDICAID, SELFPAY ==
--- NOTE | 2023-06-18 07:55 | NM_ITS ---
WS: [id number] NUCLEAR MEDICINE HIDA SCAN CLINICAL INFORMATION: EPIGASTRIC ABDOMINAL PAIN TECHNIQUE: Following intravenous administration of 7.4 mCi of technetium 99m mebrofenin, images of th e abdomen were obtained over the course of 60 minutes. Next, gallbladder ejection fraction was determ ined by obtaining preprandial and one-hour postprandial images of the gallbladder following oral tylor stion of Ensure. COMPARISON: None. FINDINGS: Normal hepatic uptake at 5 minutes. Normal hepatic excretion. Gallbladder is visualized by 15 minutes . No evidence of acute cholecystitis. Normal common bile duct and small bowel activity. Gallbladder ejection fraction 100% within normal limits. No evidence of chronic cholecystitis. IMPRESSION: 1. No evidence of acute or chronic cholecystitis. 2. Gallbladder ejection fraction 100% within normal limits.
== END 2023-06-18 07:51 | disposition home or self-care (01) ==
LOC: RAD 07:51
PROVIDERS: Visit Provider Nurse Practitioner Family
DX: R10.13 Epigastric pain (principal)
CPT/HCPCS: 78227; A9537

== ENCOUNTER → 2023-12-15 13:57 | Outpatient (BNVA) | payer BC, MEDICAID, SELFPAY | PROVIDERS: PCP Nurse Practitioner Family; Visit Provider Nurse Practitioner Family | DX: Z12.4 Encounter for screening for malignant neoplasm of cervix (principal); N89.8 Other specified noninflammatory disorders of vagina | CPT/HCPCS: 87070; 87205; 87624 ==